=== PATIENT | female | born 1975 | race Caucasian/White ===

== ENCOUNTER 2016-08-14 16:00 | Inpatient (IN) | payer MEDICAID ==
[2016-08-20] MEDS ORDERED: CELECOXIB 100 MG CAPSULE PO ONE (06:00)
[2016-08-20] MEDS ORDERED: METOCLOPRAMIDE 10 MG TABLET PO ONE (06:00)
[2016-08-20] MEDS ORDERED: ACETAMINOPHEN 1,000 MG/100 ML BTL IV ONE (06:00)
[2016-08-20] MEDS ORDERED: VANCOMYCIN HCL 1,000 MG in 0.9 % SODIUM CHLORIDE 250ML 250 ML IVPB ONE (06:00)
[2016-08-20] MEDS ORDERED: MECLIZINE 25 MG TABLET PO ONE (06:00)
[2016-08-20] MEDS ORDERED: FAMOTIDINE 20MG TABLET PO ONE (06:00)
[2016-08-20] MEDS ORDERED: CEFAZOLIN 2 Gram 2 GM/50 ML BAG IVPB ONE (06:00)
[2016-08-20 07:53] LABS: ABO GROUP O; ANTIBODY SCREEN NEGATIVE (NEGATIVE); RH TYPE POSITIVE
[2016-08-20] MEDS ORDERED: ZOLPIDEM TARTRATE 5 MG TABLET PO PRN (10:26)
[2016-08-20] MEDS ORDERED: ACETAMINOPHEN W/ CODEINE 300MG/60MG TABLET PO PRN ×2 (10:26)
[2016-08-20] MEDS ORDERED: DIPHENHYDRAMINE HCL 25 MG CAPSULE PO PRN (10:26)
[2016-08-20] MEDS ORDERED: MAGNESIUM HYDROXIDE 30 ML UDC PO PRN (10:26)
[2016-08-20] MEDS ORDERED: ACETAMINOPHEN 325 MG TAB PO PRN (10:26)
[2016-08-20] MEDS ORDERED: ONDANSETRON HCL IV 4 MG/2 ML VIAL IVP PRN (10:26)
[2016-08-20] MEDS ORDERED: HYDROMORPHONE HCL 2 MG/ML VIAL IM PRN (10:26)
[2016-08-20] MEDS ORDERED: HYDROCODONE/APAP 10/325 TABLET PO PRN (10:26)
[2016-08-20] MEDS ORDERED: NALOXONE 0.4 MG/1 ML VIAL IVP PRN (10:26)
[2016-08-20] MEDS ORDERED: AL HYDROX/MAG HYDROX 30ML UD PO PRN (10:26)
[2016-08-20] MEDS ORDERED: KETOROLAC 30 MG/ML VIAL IVP PRN ×2 (10:26)
[2016-08-20] MEDS ORDERED: BISACODYL 10 MG SUPP RC PRN (10:26)
[2016-08-20] MEDS: POTASSIUM CHLORIDE/D5-0.9%NACL 20 MEQ/1,000 ML BAG IV SCH ×2 (12:16→23:50)
[2016-08-20] MEDS: HYDROMORPHONE HCL 1 MG/ML CPJ IM PRN ×3 (13:18→21:01)
[2016-08-20] MEDS: HYDROCODONE/APAP 10/325 TABLET PO PRN (14:20)
--- NOTE | 2016-08-20 14:47 | Rehab Evaluation ---
Patient Information - Patient Information Diagnosis: OA with right hip surgery Ordered Treatment: PT Evaluate and Treat Status: Initial Evaluation (Patient is doing very well so far; just now getting pain meds orally. Lives in house that able to move her bedroom to first floor and has one step into house only. Planned to use crutches but then discovered not same height so grandmother will check to see if someone in family has walker for her to use as the family in general has had lots of joint replacements. Doing well right now.) Surgery: Yes (JERONIMO right) Date of Surgery: 08/20/16 Past Medical/Surgical Hx: PAST MEDICAL/SURGICAL HISTORY Past Surgical History TUBAL 2007 RT AXILLARY CYST PMH - Respiratory Hx Respiratory Disorders No PMH - Cardiovascular Hx Cardiovascular Disorders No Exercise Tolerance Good PMH - Neuro Hx Neurological Disorders No PMH - GI Hx Gastrointestinal Disorders No PMH - Hx Genitourinary Disorders No Patient No: TUBAL 2007 PMH - Endocrine Hx Endocrine Disorders No PMH - Musculoskeletal Hx Musculoskeletal Disorders Yes Hx Arthritis Yes: RA, OSTEOARTHRITIS RIGHT HIP PMH - Psych Hx Psychiatric Problems Yes Hx Anxiety Yes: OCC. PMH - Hematology/Oncology Hx Hematology/Oncology No Disorders Precautions: [place], Fall (Standard precautions as well as hip precautions since had a hip replacement.) - Time With Patient Total Time Spent With Patient (Min): 30 Treatment Procedures: Detail (Patient seen in room, able to help remove blankets then we removed compressive stockings, pillow between knees then patient able to slide to edge of bed independently using rail. Sit to stand with CGA, ambulated with CGA about 100 feet into ruiz then back to room, patient able to get into bed independently. Reviewed hip precautions with patient the reviewed and performed exercises as patient could tolerate today: heel slides, SLR, quad sets, ankle pumps, trial hip abduction but too much pain today. Returned and re-attached everything removed initially then tray table and call light close. Wrote down appt times for tomorrow then pt requested door be shut.) Subjective Information - Subjective Information Per Patient Objective Data - Pain Pain Present: Yes Pain Scale Used: Numeric (1 - 10) (5) - Mental Status Patient Orientation: Oriented x3 - Visual Perception Appears within normal limits for therapeutic activities - ROM Within normal limits (Except right hip decreased 50 to 75% of normal.) - Strength/Tone Within normal limits (Except right hip: 3-/3/5) - Coordination Appears within normal limits for therapeutic activities - Bed Mobility Independent - Transfers Independent - Balance Balance Sitting: Good Balance Standing: Good - Sensation Intact - Gait Detail (Able to ambulate with FWW into ruiz about 100 feet WBAT with CGA then back to room and patient independent into bed.) Therapy Assessment - Therapy Assessment Detail (Patient doing quite well today (day of surgery) and should do well with rehab to go home.) Patient Education - Patient Education Teaching Topic: Equipment Use, Exercise/Activity Response: Return Demonstration Teaching Method: Demonstration Teaching Recipient: Patient Barriers To Learning: None Problem List - Problem List Physical Therapy Problem List: Detail (Some decrease in mobility, ability to ambulate community distances and function for going home yet.) Goals - Goals Physical Therapy Goals: Patient will be independent with all bed mobility, mobility in room and gait with community distances so can go home safely with family. Prognosis - Prognosis Good (Patient doing very well already and should be able to go home tomorrow with family after passes all skills.) Plan - Plan Physical Therapy Plan: Continue PT BID tomorrow (day after surgery) then has one appt scheduled am if needed.
[2016-08-20] MEDS ORDERED: BUPIVACAINE 0.5% W/EPI MPF 30 ML VIAL IVP ONE (15:10)
[2016-08-20] MEDS ORDERED: TRANEXAMIC ACID 1,000 MG/10 ML ML IV ONE (15:10)
[2016-08-20] MEDS ORDERED: LIDOCAINE 2% MDV (20MG/ML) 20ML VIAL IV ONE (15:12)
[2016-08-20] MEDS ORDERED: DIPHENHYDRAMINE HCL IV 50 MG/ML VIAL IVP ONE (15:12)
[2016-08-20] MEDS ORDERED: EPHEDRINE SULFATE 50 MG/ML ML IV ONE (15:12)
[2016-08-20] MEDS ORDERED: FENTANYL PF 100MCG/2ML VIAL IV ONE (15:12)
[2016-08-20] MEDS ORDERED: PROPOFOL 10 MG/ML VIAL IV ONE (15:12)
[2016-08-20] MEDS ORDERED: MIDAZOLAM HCL 2MG/2ML VIAL IV ONE (15:12)
[2016-08-20] MEDS: CEFAZOLIN 2 Gram 2 GM/50 ML BAG IVPB SCH (18:18)
[2016-08-20] MEDS: DOCUSATE SODIUM 100 MG CAPSULE PO SCH (22:12)
[2016-08-21] MEDS: CEFAZOLIN 2 Gram 2 GM/50 ML BAG IVPB SCH ×2 (00:30→08:33)
[2016-08-21] MEDS: HYDROMORPHONE HCL 1 MG/ML CPJ IM PRN (00:30)
[2016-08-21] MEDS: HYDROCODONE/APAP 10/325 TABLET PO PRN ×3 (06:22→15:29)
[2016-08-21 06:40] LABS: HEMATOCRIT 33.6 % (35.0-47.0); HEMOGLOBIN 11.5 gm/dl (11.6-16.0)
[2016-08-21 07:08] LABS: BLOOD UREA NITROGEN 7 mg/dL (7-17); CREATININE 0.7 mg/dL (0.52-1.04); EST GLOMERULAR FILTRATION RATE > 60 ml/min; GLUCOSE,RANDOM 102 mg/dL (70-110)
[2016-08-21] MEDS: DOCUSATE SODIUM 100 MG CAPSULE PO SCH (09:15)
[2016-08-21] MEDS ORDERED: RIVAROXABAN 10 MG TABLET PO SCH (10:00)
[2016-08-21] MEDS ORDERED: FERROUS SULFATE 325 MG TAB PO SCH (10:00)
--- NOTE | 2016-08-21 11:33 | Physical Therapy Tx Note ---
Physical Therapy Tx Note - Treatment Note Tolerated: Good Total Time Spent With Patient: 15 Physical Therapy Tx Note: Detail (The patient had increased complaints of hip pain. The patient was sitting on edge of bed when PT arrived. The patient ambulated with wheeled walker a distance of 75 feet x 1 independently WBAT on the R LE. The patient required minimal PA to lift R LE due to pain complaints for sit to supine transfer. The patient refused further activity due to pain. The patient states she has a walker which her grandmother is bringing.) Physical Therapy Problem List: Detail (Some decrease in mobility, ability to ambulate community distances and function for going home yet.) Physical Therapy Goals: Patient will be independent with all bed mobility, mobility in room and gait with community distances so can go home safely with family. Physical Therapy Plan: Continue PT BID tomorrow (day after surgery) then has one appt scheduled am if needed.
--- NOTE | 2016-08-21 14:24 | Operative Note ---
DATE OF SURGERY: 08/20/2016 PREOPERATIVE DIAGNOSIS: End-stage arthrosis of the right hip. POSTOPERATIVE DIAGNOSIS: End-stage arthrosis of the right hip. OPERATION: Cementless right total hip arthroplasty using Diggs [employer] Nephew components, a size 52 no-hole Reflection cup, a 32-mm diameter 35-degree offset highly crosslinked liner, a size 12 cementless Newbern stem with a +8 32-mm diameter Oxinium head. Surgeon: Tonio Neal MD Anesthesia: Spinal. PREPARATION: Chloraprep. INDIVIDUAL CONSIDERATIONS: None. PROCEDURE: The patient was taken to the operating room, placed supine on the operating room table. She had a successful induction of a spinal anesthetic. She was then placed on her side right side up, and her right leg and hip were prepped and draped in the usual fashion. The patient had direct posterior approach to the hip. Sharp dissection carried down through skin and subcutaneous tissue. Small veins were coagulated with a Bovie. The tensor gluteal fascia was opened along the entire length of the incision, and deep retractors were placed. Short external rotators were identified piriformis fossa and removed with a Bovie. This exposed the posterior capsule. Posterior capsule was resected, and the hip was dislocated posteriorly. She had exposed bone and areas of damaged cartilage on the head. A femoral neck cut was then made about a fingerbreadth above the lesser troch with an oscillating saw. A rim capsulectomy was performed. A large posterior wall osteophyte was removed with an osteotome. Starting with a 47 mm reamer to medialize, I medialized just about to the medial wall and reamed to the introitus, which was a 51 for a 52 cup. I slightly centrally reamed to the 50. After irrigation, I impacted a size 52 no-hole Reflection cup in 20 degrees of forward flexion and 40 degrees of abduction using the extraarticular alignment guide and bony landmarks. There was solid cementless fixation. After irrigation, I placed a center cap screw and then impacted a 35-degree offset liner with the offset directly posteriorly. This was a highly crosslinked liner. This gave an excellent stable acetabular construct, and this was packed off. The proximal femur was delivered into the wound. Box cutting osteotomes were used to remove the proximal metaphyseal bone. Mid-stem reaming was done to a size 12. I just started feeling cortex maybe just above 10. I broached to the 12. There was solid cementless fixation with the broach. Calcar reamed and with a +8, there was solid stability. I went ahead and removed the trial, irrigated out completely, and then impacted a high-offset size 12 Newbern stem with solid cementless fixation and calcar contact. I went ahead, after thorough irrigation and drying, and impacted a +8 32-mm diameter Oxinium head. When I reduced the hip, I had basically absolute stability. If I were to flex to 130 degrees and internally rotate past 60, it would come out, but it is basically hitting one of the posts. At 90 degrees flexion and 90 degrees of internal rotation, still solid stability. Full flexion with the knee at her chest and about 20 degrees of internal rotation was still solidly stable. Absolute anterior stability with full extension and external rotation normal to shuck. After irrigation, hemostasis was obtained with a Bovie. Sciatic nerve was inspected and found to be completely intact. The patient did receive 1 g of tranexamic acid preoperatively. I mixed 1 g of tranexamic acid with 40 mL of saline and placed this deep in the fascia. The fascia was then closed with a running #2 quill. Subcu and skin was infiltrated with 0.5% Marcaine with epinephrine. The subcu was closed with running 0 quill. Skin was closed with running 2-0 quill, and sterile bulky compressive Aquacel type dressing was applied. The patient tolerated the procedure well. Needle and sponge counts were correct. Estimated blood loss was maybe 100 mL. She was taken back to recovery in good condition. There were no complications. CC: Dr. Jv GIPSON
--- NOTE | 2016-08-21 14:25 | Discharge Summary ---
DATE OF ADMISSION: 08/20/2016 DATE OF DISCHARGE: 08/21/2016 DATE OF SURGERY: 08/20/2016 HISTORY: Patient is a delightful female who presents with end-stage arthrosis of the right hip. She was admitted after right total hip arthroplasty. Postoperatively, she did well. She was basically independent the night of surgery. Her discharge hemoglobin was 11.5. She did not require transfusion. PLAN: Discharge to home in the care of her family. Home PT visiting nurse has been arranged. She was given Xarelto followed by aspirin for DVT prophylaxis. She was given [place] for pain. She will follow up in my office in 4 weeks. DISCHARGE CONDITION: Very good and these instructions were given directly to her and her family. FINAL DIAGNOSIS/PRIMARY DIAGNOSIS: End-stage arthrosis of the right hip. SECONDARY DIAGNOSES: None. OPERATIONS AND PROCEDURES: Cemented right total hip arthroplasty. CC: Dr. Jv GIPSON
--- NOTE | 2016-08-21 15:26 | Rehab Evaluation ---
Patient Information - Patient Information Past Medical/Surgical Hx: PAST MEDICAL/SURGICAL HISTORY Past Surgical History TUBAL 2007 RT AXILLARY CYST PMH - Respiratory Hx Respiratory Disorders No PMH - Cardiovascular Hx Cardiovascular Disorders No Exercise Tolerance Good PMH - Neuro Hx Neurological Disorders No PMH - GI Hx Gastrointestinal Disorders No PMH - Hx Genitourinary Disorders No Patient No: TUBAL 2007 PMH - Endocrine Hx Endocrine Disorders No PMH - Musculoskeletal Hx Musculoskeletal Disorders Yes Hx Arthritis Yes: RA, OSTEOARTHRITIS RIGHT HIP PMH - Psych Hx Psychiatric Problems Yes Hx Anxiety Yes: OCC. PMH - Hematology/Oncology Hx Hematology/Oncology No Disorders Objective Data - Pain Pain Intensity: 5 (R hip)
--- NOTE | 2016-08-21 15:35 | Physical Therapy Tx Note ---
Physical Therapy Tx Note - Treatment Note Tolerated: Good Total Time Spent With Patient: 20 Physical Therapy Tx Note: Detail (The patient complained of level 5 pain R hip. The patient ambulated with wheeled walker WBAT on the R 67 feet x 1. The patient ambulated on stairs with supervision of 1 for safety with one railing and walker. The patient's HEP and JERONIMO precautions were reviewed.) Physical Therapy Problem List: Detail (Some decrease in mobility, ability to ambulate community distances and function for going home yet.) Physical Therapy Goals: Patient will be independent with all bed mobility, mobility in room and gait with community distances so can go home safely with family. Physical Therapy Plan: The patient has completed PT inpatient goals and is discharged from inpatient PT.
--- NOTE | 2016-08-21 15:38 | Rehab Evaluation ---
Patient Information - Patient Information Diagnosis: OA with right hip surgery Ordered Treatment: OT Evaluate and Treat Surgery: Yes (JERONIMO right) Date of Surgery: 08/20/16 Past Medical/Surgical Hx: PAST MEDICAL/SURGICAL HISTORY Past Surgical History TUBAL 2007 RT AXILLARY CYST PMH - Respiratory Hx Respiratory Disorders No PMH - Cardiovascular Hx Cardiovascular Disorders No Exercise Tolerance Good PMH - Neuro Hx Neurological Disorders No PMH - GI Hx Gastrointestinal Disorders No PMH - Hx Genitourinary Disorders No Patient No: TUBAL 2007 PMH - Endocrine Hx Endocrine Disorders No PMH - Musculoskeletal Hx Musculoskeletal Disorders Yes Hx Arthritis Yes: RA, OSTEOARTHRITIS RIGHT HIP PMH - Psych Hx Psychiatric Problems Yes Hx Anxiety Yes: OCC. PMH - Hematology/Oncology Hx Hematology/Oncology No Disorders Precautions: [place], Fall (Standard precautions as well as hip precautions since had a hip replacement.) - Time With Patient Total Time Spent With Patient (Min): 20 Treatment Procedures: Detail (OT evaluation LOW) Subjective Information - Subjective Information Per Patient Objective Data - Pain Pain Present: Yes Pain Intensity: 5 (R hip) Pain Scale Used: Numeric (1 - 10) - Mental Status Patient Orientation: Oriented x3 - Visual Perception Appears within normal limits for therapeutic activities - ROM Within normal limits (BUE's) - Strength/Tone Within normal limits (BUE's) - Coordination Appears within normal limits for therapeutic activities - Bed Mobility Independent - Transfers Independent - Balance Balance Sitting: Good - ADL's/IADL's Detail (Pt educated on and demonstrated understanding on drsg techniques while adhering to hip precautions. She was educated on ADL equipment including mathematical sciences professor , sock aid, LH sponge, LH shoe horn. Pt does not require purchase of hip kit due to she already has all the above equipment except sock aid. Pt will not be wearing socks while at home. She will have support of her grandmother and children to assist as needed. Pt completed UB and LB drsg independently with use of mathematical sciences professor and adhering to hip precautions. Pt safe with drsg.) Therapy Assessment - Therapy Assessment Detail (Pt safe with ADL equipment and drsg) Problem List - Problem List Physical Therapy Problem List: Detail (Some decrease in mobility, ability to ambulate community distances and function for going home yet.) Goals - Goals Physical Therapy Goals: Patient will be independent with all bed mobility, mobility in room and gait with community distances so can go home safely with family. Prognosis - Prognosis Good Plan - Plan Physical Therapy Plan: Continue PT BID tomorrow (day after surgery) then has one appt scheduled am if needed. Occupational Therapy Plan: No further Inpatient Occupational Therapy needed.
== END 2016-08-21 17:22 | disposition home health service (06) | DRG 470 ==
LOC: MEDSURG 08-20 06:49
PROVIDERS: ADMIT Orthopaedic Surgery; ATTEND Orthopaedic Surgery
PROC: 0SR9019 Replacement of Right Hip Joint with Metal Synthetic Substitute, Cemented, Open Approach (ICD-10-PCS; principal; 2016-08-20 09:00)
DX: M16.11 Unilateral primary osteoarthritis, right hip (principal)
CPT/HCPCS: 80048; 85014; 85018; 86850; 86900; 86901; 97165; 97530; J1170; J1200; J1885; J3480; J7050